=== PATIENT | female | born 1985 | race Caucasian/White ===

== ENCOUNTER 2017-08-12 17:39 | Inpatient (IN) | payer MEDICAID, OTHER ==
[~2017-08-12] VITALS: Ht 165.1 cm; Wt 71.7 kg
[2017-08-12 19:44] LABS: BILIRUBIN,URINE NEGATIVE (NEGATIVE); CLARITY,URINE CLEAR (CLEAR); COLOR,URINE YELLOW (YELLOW); KETONES,URINE NEGATIVE (NEGATIVE); LEUKOCYTE ESTERASE ,URINE NEGATIVE (NEGATIVE); NITRITE,URINE NEGATIVE (NEGATIVE); PROTEIN,URINE DIPSTICK NEGATIVE (NEGATIVE); URINE UROBILINOGEN 0.2 mg/dL (0.2 - 1)
[2017-08-12 19:48] LABS: PREGNANCY TEST, URINE NEGATIVE (NEGATIVE)
[2017-08-12 19:50] LABS: AMPHETAMINES SCREEN,URINE NEGATIVE (NEGATIVE); BENZODIAZEPINES SCREEN,URINE NEGATIVE (NEGATIVE); PHENCYCLIDINE SCREEN,URINE NEGATIVE (NEGATIVE)
[2017-08-12 20:00] LABS: EPITHELIAL CELLS,URINE FEW /LPF
[2017-08-12 21:02] LABS: BASOPHILS # (AUTO) 0.1 (0.0-0.1); BASOPHILS % 0.3 % (0.0-1.0); EOSINOPHILS # (AUTO) 0.1 (0.0-0.4); EOSINOPHILS % 0.6 % (0.0-6.0); HEMATOCRIT 35.5 % (34.2-44.1); LYMPHOCYTES # (AUTO) 1.5 (1.0-3.2); LYMPHOCYTES % 10.6 % (18.0-39.1); MEAN CORPUSCULAR HEMOGLOBIN 27.8 pg (28-32); MEAN CORPUSCULAR HGB CONC 33.8 g/dL (31-35); MEAN CORPUSCULAR VOLUME 82.2 fL (81-99); MONOCYTES # (AUTO) 1.5 (0.2-0.8); MONOCYTES % 10.5 % (4.4-11.3); NEUTROPHILS # (AUTO) 11.1 (2.1-6.9); NEUTROPHILS % 77.4 % (38.7-80.0); PLATELET COUNT 368 x10e3/uL (140-360); RED BLOOD COUNT 4.32 x10e6/uL (3.6-5.1); RED CELL DISTRIBUTION WIDTH 14.4 % (11.7-14.4)
[2017-08-12 21:15] LABS: ALANINE AMINOTRANSFERASE 18 IU/L (0-55); ALBUMIN 3.1 g/dL (3.5-5.0); ALBUMIN/GLOBULIN RATIO 0.6 (0.8-2.0); ALKALINE PHOSPHATASE 119 IU/L (40-150); ANION GAP 15.9 mmol/L (8-16); BLOOD UREA NITROGEN 13 mg/dL (7-26); BUN/CREATININE RATIO 16 (6-25); CALCIUM 9.4 mg/dL (8.4-10.2); CARBON DIOXIDE 26 mmol/L (22-29); CHLORIDE 99 mmol/L (98-107); EST GLOMERULAR FILTRATION RATE > 60 ML/MIN (60-); GLUCOSE 98 mg/dL (74-118); SODIUM 138 mmol/L (136-145)
[2017-08-12 21:22] LABS: POTASSIUM 2.9 mmol/L (3.5-5.1)
[2017-08-12] MEDS ORDERED: POTASSIUM CHLORIDE 20 MEQ TAB CR PO STA (21:34)
--- NOTE | 2017-08-12 21:50 | Diagnostic Imaging Report ---
FOOT RIGHT COMPLETE, ANKLE 3 + VIEWS RIGHT Comparison: None Clinical history: \S\EVAL FOR FB AND OSTEOMYELITIS \[id number] \S\2100 \S\Y Findings: No fracture or dislocation or bony destruction. Moderate ankle and foot soft tissue swelling. Impression: No radiographic evidence of osteomyelitis Signed by: Dr Larissa Caceres MD on 08/12/2017 9:46 PM
--- NOTE | 2017-08-12 21:50 | Diagnostic Imaging Report ---
FOOT RIGHT COMPLETE, ANKLE 3 + VIEWS RIGHT Comparison: None Clinical history: \S\EVAL FOR FB AND OSTEOMYELITIS \[id number] \S\2100 \S\Y Findings: No fracture or dislocation or bony destruction. Moderate ankle and foot soft tissue swelling. Impression: No radiographic evidence of osteomyelitis Signed by: Dr Larissa Caceres MD on 08/12/2017 9:46 PM
[2017-08-12] MEDS: PIPER-TAZ 3.375 GM 50 ML IV SCH (22:09)
[2017-08-12] MEDS ORDERED: ACETAMINOPHEN 325 MG TAB PO PRN (22:15)
[2017-08-12] MEDS: ONDANSETRON HCL INJ 2 MG/ML VIAL IV PRN (22:34)
[2017-08-12] MEDS: SODIUM CHLORIDE 0.9% 1000ML 1,000 ML IV SCH (22:34)
[2017-08-12] MEDS: MORPHINE SULFATE 2 MG/ML SYR IV PRN (22:38)
[2017-08-12] MEDS: VANCOMYCIN 1GM/NS 250 ML 250 ML IV SCH (22:45)
[2017-08-13] VITALS (8 sets, daily range): BP systolic 114–147; BP diastolic 63–86
[2017-08-13] MEDS: ONDANSETRON HCL INJ 2 MG/ML VIAL IV PRN (03:32)
[2017-08-13] MEDS: MORPHINE SULFATE 2 MG/ML SYR IV PRN ×2 (03:32→18:11)
[2017-08-13] MEDS: PIPER-TAZ 3.375 GM 50 ML IV SCH ×3 (05:21→21:38)
[2017-08-13 07:23] LABS: BASOPHILS % 0.4 % (0.0-1.0); EOSINOPHILS # (AUTO) 0.1 (0.0-0.4); EOSINOPHILS % 0.8 % (0.0-6.0); HEMATOCRIT 31.4 % (34.2-44.1); HEMOGLOBIN 10.5 g/dL (12.0-16.0); LYMPHOCYTES # (AUTO) 1.2 (1.0-3.2); LYMPHOCYTES % 10.5 % (18.0-39.1); MEAN CORPUSCULAR HEMOGLOBIN 28.2 pg (28-32); MEAN CORPUSCULAR HGB CONC 33.4 g/dL (31-35); MEAN CORPUSCULAR VOLUME 84.4 fL (81-99); MONOCYTES # (AUTO) 1.3 (0.2-0.8); MONOCYTES % 11.7 % (4.4-11.3); NEUTROPHILS # (AUTO) 8.4 (2.1-6.9); NEUTROPHILS % 76.1 % (38.7-80.0); PLATELET COUNT 336 x10e3/uL (140-360); RED BLOOD COUNT 3.72 x10e6/uL (3.6-5.1); RED CELL DISTRIBUTION WIDTH 14.6 % (11.7-14.4)
[2017-08-13 07:48] LABS: ALANINE AMINOTRANSFERASE 15 IU/L (0-55); ALBUMIN 2.6 g/dL (3.5-5.0); ALBUMIN/GLOBULIN RATIO 0.6 (0.8-2.0); ALKALINE PHOSPHATASE 102 IU/L (40-150); BLOOD UREA NITROGEN 9 mg/dL (7-26); BUN/CREATININE RATIO 13 (6-25); CALCIUM 8.5 mg/dL (8.4-10.2); CARBON DIOXIDE 27 mmol/L (22-29); CHLORIDE 102 mmol/L (98-107); CREATININE, SERUM 0.69 mg/dL (0.57-1.11); EST GLOMERULAR FILTRATION RATE > 60 ML/MIN (60-); GLUCOSE 102 mg/dL (74-118); SODIUM 139 mmol/L (136-145)
[2017-08-13] MEDS: SODIUM CHLORIDE 0.9% 1000ML 1,000 ML IV SCH ×3 (09:26→21:38)
[2017-08-13] MEDS: VANCOMYCIN 1GM/NS 250 ML 250 ML IV SCH ×2 (09:26→22:41)
--- NOTE | 2017-08-13 14:42 | Cardiology Report ---
DATE OF STUDY: August 12, 2017 DOPPLER SCAN OF THE RIGHT LEG VEINS A 32-year-old female. The right leg veins were interrogated using the duplex scanning method. The veins were compressible. There were no definite deep venous thromboses. CONCLUSIONS 1. No definite deep venous thrombosis involving the right leg veins. 2. The left leg was not studied. Job#: [id number] EV cc: CAMILLE EDGE MD
[2017-08-14] VITALS (7 sets, daily range): BP systolic 113–138; BP diastolic 56–87
[2017-08-14] MEDS: SODIUM CHLORIDE 0.9% 1000ML 1,000 ML IV SCH ×3 (05:52→22:07)
[2017-08-14] MEDS: PIPER-TAZ 3.375 GM 50 ML IV SCH ×3 (05:52→21:46)
[2017-08-14 07:19] LABS: BASOPHILS # (AUTO) 0.1 (0.0-0.1); BASOPHILS % 0.5 % (0.0-1.0); EOSINOPHILS # (AUTO) 0.1 (0.0-0.4); EOSINOPHILS % 0.7 % (0.0-6.0); HEMATOCRIT 32.7 % (34.2-44.1); HEMOGLOBIN 11.1 g/dL (12.0-16.0); LYMPHOCYTES # (AUTO) 1.3 (1.0-3.2); LYMPHOCYTES % 12.5 % (18.0-39.1); MEAN CORPUSCULAR HEMOGLOBIN 28.1 pg (28-32); MEAN CORPUSCULAR HGB CONC 33.9 g/dL (31-35); MEAN CORPUSCULAR VOLUME 82.8 fL (81-99); MONOCYTES # (AUTO) 1.1 (0.2-0.8); MONOCYTES % 10.4 % (4.4-11.3); NEUTROPHILS # (AUTO) 7.5 (2.1-6.9); NEUTROPHILS % 74.3 % (38.7-80.0); PLATELET COUNT 347 x10e3/uL (140-360); RED BLOOD COUNT 3.95 x10e6/uL (3.6-5.1); RED CELL DISTRIBUTION WIDTH 14.6 % (11.7-14.4)
[2017-08-14 07:41] LABS: ANION GAP 12.1 mmol/L (8-16); BLOOD UREA NITROGEN 6 mg/dL (7-26); BUN/CREATININE RATIO 9 (6-25); CALCIUM 8.8 mg/dL (8.4-10.2); CARBON DIOXIDE 26 mmol/L (22-29); CHLORIDE 103 mmol/L (98-107); CREATININE, SERUM 0.65 mg/dL (0.57-1.11); EST GLOMERULAR FILTRATION RATE > 60 ML/MIN (60-); GLUCOSE 108 mg/dL (74-118); POTASSIUM 3.1 mmol/L (3.5-5.1); SODIUM 138 mmol/L (136-145)
[2017-08-14] MEDS: VANCOMYCIN 1GM/NS 250 ML 250 ML IV SCH ×2 (08:54→20:36)
[2017-08-14 11:20] LABS: BAND NEUTROPHILS % (MANUAL) 13 %; LYMPHOCYTES % (MANUAL) 17 % (19-48); MONOCYTES % (MANUAL) 1 % (3.4-9.0); NEUTROPHILS % (MANUAL) 69 % (40-74); RBC MORPHOLOGY COMMENT NORMAL
[2017-08-14 11:21] LABS: PLATELET ESTIMATE ADEQUATE; PLATELET MORPHOLOGY COMMENT NORMAL
[2017-08-14] MEDS: MORPHINE SULFATE 2 MG/ML SYR IV PRN ×2 (18:13→22:30)
[2017-08-14] MEDS ORDERED: POTASSIUM CHLORIDE 20 MEQ TAB CR PO ONE ×2 (20:00→22:00)
[2017-08-14] MEDS: ONDANSETRON HCL INJ 2 MG/ML VIAL IV PRN (22:30)
[2017-08-15] VITALS (7 sets, daily range): BP systolic 122–137; BP diastolic 69–81
[2017-08-15] MEDS: PIPER-TAZ 3.375 GM 50 ML IV SCH ×2 (05:52→15:10)
[2017-08-15] MEDS: SODIUM CHLORIDE 0.9% 1000ML 1,000 ML IV SCH ×4 (05:52→20:14)
[2017-08-15] MEDS: MORPHINE SULFATE 2 MG/ML SYR IV PRN (06:30)
[2017-08-15] MEDS: ONDANSETRON HCL INJ 2 MG/ML VIAL IV PRN (06:30)
[2017-08-15 08:10] LABS: ANION GAP 14.6 mmol/L (8-16); BLOOD UREA NITROGEN 6 mg/dL (7-26); BUN/CREATININE RATIO 9 (6-25); CALCIUM 8.9 mg/dL (8.4-10.2); CARBON DIOXIDE 26 mmol/L (22-29); CHLORIDE 105 mmol/L (98-107); EST GLOMERULAR FILTRATION RATE > 60 ML/MIN (60-); GLUCOSE 105 mg/dL (74-118); POTASSIUM 3.6 mmol/L (3.5-5.1); SODIUM 142 mmol/L (136-145)
[2017-08-15] MEDS ORDERED: HYDROMORPHONE 2MG/ML INJ IV PRN (09:45)
[2017-08-15] MEDS: VANCOMYCIN 1GM/NS 250 ML 250 ML IV SCH ×2 (11:07→20:14)
[2017-08-15] MEDS ORDERED: SEVOFLURANE INHAL SOLN 250 ML PEN BTL ONE (13:18)
[2017-08-15] MEDS ORDERED: LIDOCAINE HCL 2% LOCAL INJ 5 ML SDV VIAL INJ ONE (13:18)
[2017-08-15] MEDS ORDERED: ONDANSETRON HCL INJ 2 MG/ML VIAL ONE (13:18)
[2017-08-15] MEDS ORDERED: PROPOFOL IV EMULSION 10 MG/ML 20 ML VIAL ONE (13:18)
[2017-08-15] MEDS ORDERED: FENTANYL CITRATE/PF 100MCG/2 ML INJ ONE (14:37)
[2017-08-15] MEDS ORDERED: MIDAZOLAM HCL 2 MG/2 ML VIAL ONE (14:37)
[2017-08-15] MEDS: CEFTRIAXONE SOD 1 GM VIAL IV SCH (17:41)
[2017-08-15] MEDS: HYDROMORPHONE 1MG/1ML INJ IV PRN (18:12)
--- NOTE | 2017-08-15 18:33 | Operative Report ---
DATE OF PROCEDURE: August 15, 2017 PREOPERATIVE DIAGNOSIS: Cellulitis and abscess of the right ankle. POSTOPERATIVE DIAGNOSIS: Cellulitis and abscess of the right ankle. OPERATION PERFORMED: Excisional debridement of the right ankle. ANESTHESIA: General. COMPLICATIONS: None. ESTIMATED BLOOD LOSS: Minimal. DETAILS: With the patient lying in bed in the supine position under good general anesthesia, the right ankle was prepped with Betadine solution, draped in the usual manner in the anterior aspect of the right ankle. All of the necrotic tissue that was present was then excised. Cultures were taken. This was done with sharp debridement all the way down to normal bleeding tissue. Once this was done and all the necrotic skin and subcutaneous tissue was removed, the wound was then cleaned with a Betadine scrub brush until all of the area was totally clean. The wound was then irrigated with saline and a dressing was applied using iodoform gauze, 4 x 4, and an Justin. Patient tolerated the procedure well and returned to the recovery room in stable condition. Job#: [id number] CQ
[2017-08-15] MEDS: HYDROCODONE/APAP 7.5MG-325MG 1 EA TAB PO PRN (20:14)
[2017-08-16 01:04] VITALS: BP 114/74
[2017-08-16] MEDS: HYDROMORPHONE 1MG/1ML INJ IV PRN ×4 (03:41→17:26)
[2017-08-16 08:17] VITALS: BP 123/90
[2017-08-16] MEDS: VANCOMYCIN 1GM/NS 250 ML 250 ML IV SCH ×2 (09:40→19:45)
[2017-08-16 12:01] VITALS: BP 142/84
[2017-08-16 15:46] VITALS: BP 128/79
[2017-08-16] MEDS: CEFTRIAXONE SOD 1 GM VIAL IV SCH (17:04)
[2017-08-16] MEDS: HYDROCODONE/APAP 7.5MG-325MG 1 EA TAB PO PRN (19:45)
[2017-08-16] MEDS: SODIUM CHLORIDE 0.9% 1000ML 1,000 ML IV SCH (19:45)
[2017-08-16 20:00] VITALS: BP 151/97
[2017-08-16 20:51] VITALS: BP 151/97
[2017-08-17 00:50] VITALS: BP 145/94
[2017-08-17 05:16] VITALS: BP 128/79
[2017-08-17 08:00] VITALS: BP 112/68
[2017-08-17] MEDS: HYDROMORPHONE 1MG/1ML INJ IV PRN (09:45)
[2017-08-17] MEDS: VANCOMYCIN 1GM/NS 250 ML 250 ML IV SCH (09:45)
[2017-08-17 12:00] VITALS: BP 115/63
[2017-08-17 16:00] VITALS: BP 133/60
[2017-08-17] MEDS: CEFTRIAXONE SOD 1 GM VIAL IV SCH (16:00)
== END 2017-08-17 20:05 | disposition home or self-care (01) | DRG 572 ==
LOC: ER 17:39 → ERHOLD 22:22 → MED/SURG2 23:13
PROC: 0JBQ0ZZ Excision of Right Foot Subcutaneous Tissue and Fascia, Open Approach (ICD-10-PCS; principal; 2017-08-15 14:00)
DX: L02.415 Cutaneous abscess of right lower limb (principal); E87.6 Hypokalemia; L03.115 Cellulitis of right lower limb; F15.19 Other stimulant abuse with unspecified stimulant-induced disorder; Z28.82 Immunization not carried out because of caregiver refusal
CPT/HCPCS: 36415; 80048; 80053; 80202; 80307; 81001; 81025; 82948; 85025; 87040; 87071; 87075; 87086; 87205; 93971; 99284; J0696; J1170; J2001; J2250; J2270; J2405; J2543; J3370; J7030